=== PATIENT | male | born 2000 | race Two or more races ===

== ENCOUNTER 2020-07-29 11:05 | Emergency (ER) | payer OTHER ==
[~2020-07-29] VITALS: Ht 172.7 cm; Wt 83.9 kg
== END 2020-07-29 13:30 | disposition home or self-care (01) ==
LOC: EMR PED 11:05 → ER 11:05 → EMR PED 13:17
DX: S40.022A Contusion of left upper arm, initial encounter (principal); M79.602 Pain in left arm; U07.1 COVID-19; V49.88XA Car occupant (driver) (passenger) injured in other specified transport accidents, initial encounter; Y93.89 Activity, other specified; Y92.488 Other paved roadways as the place of occurrence of the external cause; Y99.8 Other external cause status